=== PATIENT | male | born 1955 | race Caucasian/White ===

== ENCOUNTER 2018-12-13 12:00 | Emergency (ER) | payer OTHER, MEDICAID ==
[~2018-12-13] VITALS: Ht 162.6 cm; Wt 66.7 kg
[2018-12-13 12:15] VITALS: Ht 162.6 cm; Wt 66.7 kg
[2018-12-13 15:09] VITALS: BP 138/79
== END 2018-12-13 15:09 | disposition home or self-care (01) ==
LOC: ED 12:00
DX: R05 Cough (principal); I10 Essential (primary) hypertension; G89.29 Other chronic pain; Z85.819 Personal history of malignant neoplasm of unspecified site of lip, oral cavity, and pharynx; Z93.0 Tracheostomy status
CPT/HCPCS: J7613; J7644; Q0092